=== PATIENT | female | born 1955 | race Caucasian/White ===

== ENCOUNTER 2017-03-04 08:31 | Inpatient (IN) | payer BC, OTHER ==
[~2017-03-04] VITALS: Ht 160 cm; Wt 79.8 kg
[~2017-03-04 08:31] MED LIST: BACTRIM DS TAB1 EACH PO; EFFEXOR XR75 MG PO; ENOXAPARIN40 MG/0.1 PO; FLEXERIL PO; GABAPENTIN100 MG PO; LOVASTATIN 20 M20 MG PO; LYRICA 50 MG50 MG PO; MEDROL4 MG PO; MOBIC15 MG PO; NORCO 10-325 T1 EACH PO; NYSTATIN 100,0015 G1 TP; PROZAC40 MG PO; TOPAMAX 25 MG T25 M1 PO; TOPROL XL25 MG PO; TRAZODONE 100100 MG PO; VENTOLIN HFA 1818 GM; VICODIN 5-5001 EACH PO; XANAX 0.25 MG0.25 MG
[2017-03-04 08:32] VITALS: BP 146/102
[2017-03-04 08:50] LABS: HEMATOCRIT 44.4 % (37.0-47.0); HEMOGLOBIN 15.2 gm/dL (12.0-15.0); MCH 32.5 pg (26.0-34.0); MCHC 34.3 g/dL (28.0-37.0); MCV 94.8 fL (80.0-100.0); PLATELET COUNT 403 thou/uL (150-400); RBC 4.68 mil/uL (4.20-5.00); WBC 22.7 thou/uL (4.0-11.0)
[2017-03-04 08:51] LABS: MANUAL DIFF YES
[2017-03-04 08:58] LABS: CALCIUM 9.5 mg/dL (8.5-10.1); CREATININE 1.1 mg/dL (0.6-1.0); POTASSIUM 3.7 mmol/L (3.5-5.1)
[2017-03-04 09:05] LABS: ALBUMIN 3.2 g/dL (3.4-5.0); TOTAL BILIRUBIN 0.3 mg/dL (<0.1-1.0); TOTAL PROTEIN 8.2 g/dL (6.4-8.2)
[2017-03-04 09:08] LABS: ABSOLUTE NEUTROPHILS 17.9 thou/uL (1.4-8.2); TOTAL CELL COUNT 100
[2017-03-04 09:09] LABS: ANISOCYTOSIS SLIGHT
[2017-03-04 11:49] LABS: URINE BILIRUBIN NEGATIVE (Negative); URINE BLOOD 2+ (Negative); URINE COLOR YELLOW; URINE GLUCOSE-RANDOM* NEGATIVE (Negative); URINE KETONES NEGATIVE (Negative); URINE LEUKOCYTES-REFLEX 2+ (Negative); URINE PROTEIN (DIPSTICK) NEGATIVE (Negative); URINE SPECIFIC GRAVITY <= 1.005 (1.003-1.035); URINE UROBILINOGEN 0.2 E.U./dl (0.2-1.0)
[2017-03-04 12:08] LABS: CASTS None Seen /LPF (None Seen); CRYSTALS None Seen /LPF (None Seen); SQUAMOUS 0-3 Few /LPF (0-3)
[2017-03-04 12:09] LABS: URINE RBC 0-2 Rare /HPF (0-2); URINE WBC-REFLEX 0-5 Rare /HPF (0-5)
[2017-03-04 12:12] VITALS: BP 108/73
[2017-03-04] MEDS ORDERED: TRIAZOLAM0.25 MG PO (12:22)
[2017-03-04 12:55] VITALS: BP 124/75
[2017-03-04] MEDS ORDERED: BENADRYL25 MG PO (13:18)
[2017-03-04 16:23] VITALS: BP 95/52
[2017-03-04 20:50] VITALS: BP 104/60
[2017-03-05 03:30] VITALS: BP 100/54
[2017-03-05 06:11] LABS: HEMATOCRIT 34.8 % (37.0-47.0); MCH 32.3 pg (26.0-34.0); MCHC 33.4 g/dL (28.0-37.0); MCV 96.9 fL (80.0-100.0); RBC 3.59 mil/uL (4.20-5.00); WBC 16.2 thou/uL (4.0-11.0)
[2017-03-05 06:17] LABS: CALCIUM 8.3 mg/dL (8.5-10.1); CREATININE 0.9 mg/dL (0.6-1.0); MAGNESIUM 1.7 mg/dL (1.8-2.4); POTASSIUM 3.3 mmol/L (3.5-5.1)
[2017-03-05 06:29] LABS: HEMOGLOBIN 11.6 gm/dL (12.0-15.0)
[2017-03-05 08:49] VITALS: BP 107/66
[2017-03-05 16:02] VITALS: BP 109/63
[2017-03-05 20:50] VITALS: BP 113/62
[2017-03-06 03:30] VITALS: BP 113/66
[2017-03-06 05:59] LABS: HEMATOCRIT 34.9 % (37.0-47.0); HEMOGLOBIN 11.7 gm/dL (12.0-15.0); MCHC 33.4 g/dL (28.0-37.0); MCV 95.8 fL (80.0-100.0); RBC 3.64 mil/uL (4.20-5.00); RDW 13.8 % (10.5-14.5); WBC 23.1 thou/uL (4.0-11.0)
[2017-03-06 06:13] LABS: ALBUMIN 2.4 g/dL (3.4-5.0); CALCIUM 8.2 mg/dL (8.5-10.1); CREATININE 0.9 mg/dL (0.6-1.0); PHOSPHORUS 3.2 mg/dL (2.5-4.9); POTASSIUM 3.1 mmol/L (3.5-5.1)
[2017-03-06 07:39] VITALS: BP 127/71
[2017-03-06 15:38] VITALS: BP 148/91
[2017-03-06 20:00] VITALS: BP 145/85
[2017-03-07 04:19] VITALS: BP 136/80
[2017-03-07 04:20] LABS: ALBUMIN 2.3 g/dL (3.4-5.0); CALCIUM 8.5 mg/dL (8.5-10.1); CREATININE 0.8 mg/dL (0.6-1.0); PHOSPHORUS 3.4 mg/dL (2.5-4.9); POTASSIUM 3.8 mmol/L (3.5-5.1)
[2017-03-07 04:39] LABS: HEMATOCRIT 33.5 % (37.0-47.0); HEMOGLOBIN 11.3 gm/dL (12.0-15.0); MCH 32.3 pg (26.0-34.0); MCHC 33.7 g/dL (28.0-37.0); MCV 95.7 fL (80.0-100.0); RBC 3.5 mil/uL (4.20-5.00); RDW 14.2 % (10.5-14.5); WBC 13.9 thou/uL (4.0-11.0)
[2017-03-07 15:34] VITALS: BP 102/56
[2017-03-07 16:38] VITALS: BP 142/78
[2017-03-07 20:00] VITALS: BP 145/72
[2017-03-08 04:07] LABS: ABSOLUTE NEUTROPHILS 6.5 thou/uL (1.4-8.2); BASOPHILS 0.5 % (0.0-2.0); EOSINOPHILS 1.9 % (0.0-3.0); HEMOGLOBIN 11.3 gm/dL (12.0-15.0); LYMPHOCYTES 25.6 % (24.0-44.0); MCH 32.8 pg (26.0-34.0); MCHC 34.3 g/dL (28.0-37.0); MCV 95.7 fL (80.0-100.0); MONOCYTES 7.8 % (1.0-8.0); PLATELET COUNT 329 thou/uL (150-400); POLYS 64.2 % (36.0-66.0); RBC 3.45 mil/uL (4.20-5.00); RDW 13.9 % (10.5-14.5); WBC 10.1 thou/uL (4.0-11.0)
[2017-03-08 04:42] LABS: MANUAL DIFF NO
[2017-03-08 04:57] VITALS: BP 145/78
[2017-03-08 07:31] VITALS: BP 149/91
[2017-03-08 15:20] VITALS: BP 152/84
[2017-03-08 19:39] VITALS: BP 152/90
[2017-03-09 03:44] VITALS: BP 124/80
[2017-03-09 05:01] LABS: CALCIUM 9.1 mg/dL (8.5-10.1); CREATININE 0.8 mg/dL (0.6-1.0); POTASSIUM 3.8 mmol/L (3.5-5.1)
[2017-03-09 08:02] VITALS: BP 133/84
[2017-03-09] MEDS ORDERED: FLORANEX PACKET1 GM PO (10:23)
[2017-03-09] MEDS ORDERED: VANCOMYCIN100 MG/M1 PO (10:23)
[2017-03-09 10:43] VITALS: BP 133/84
== END 2017-03-09 13:43 | disposition home or self-care (01) | DRG 372 ==
LOC: ER 08:31 → 4E 11:59 → EROBS 11:59 → 4E 12:24
PROVIDERS: Emergency Medicine; Hospitalist
DX: A04.7 Enterocolitis due to Clostridium difficile (principal); N39.0 Urinary tract infection, site not specified; F17.210 Nicotine dependence, cigarettes, uncomplicated; G89.29 Other chronic pain; E78.5 Hyperlipidemia, unspecified; M54.9 Dorsalgia, unspecified; F41.9 Anxiety disorder, unspecified; F32.9 Major depressive disorder, single episode, unspecified; K59.00 Constipation, unspecified; E87.6 Hypokalemia; D72.829 Elevated white blood cell count, unspecified; R63.0 Anorexia; E78.00 Pure hypercholesterolemia, unspecified; B96.20 Unspecified Escherichia coli [E. coli] as the cause of diseases classified elsewhere; Z90.710 Acquired absence of both cervix and uterus; Z90.49 Acquired absence of other specified parts of digestive tract; Z88.6 Allergy status to analgesic agent; Z88.0 Allergy status to penicillin; Z88.8 Allergy status to other drugs, medicaments and biological substances; Z91.018 Allergy to other foods; Z79.899 Other long term (current) drug therapy; Z68.31 Body mass index [BMI] 31.0-31.9, adult; Z85.42 Personal history of malignant neoplasm of other parts of uterus; Z85.44 Personal history of malignant neoplasm of other female genital organs
CPT/HCPCS: 10183